=== PATIENT | male | born 1975 | race Caucasian/White ===

== ENCOUNTER → 2021-12-27 | Outpatient (CLI) | payer OTHER ==
[2021-12-27 14:56] LABS: BASO % 0.7 % (0.0-1.0); EOS # 0.3 10^3/uL (0.0-0.5); EOS % 5.4 % (0.0-3.0); HEMOGLOBIN 15.4 g/dl (13.5-17.5); LYMPH # 2.1 10^3/uL (1.5-5.0); LYMPH % 38.1 % (24.0-44.0); MEAN CORPUSCULAR HEMOGLOBIN 30.3 pg (27.0-33.0); MEAN CORPUSCULAR HGB CONC 33.5 g/dl (32.0-36.5); MEAN CORPUSCULAR VOLUME 90.6 fl (80.0-96.0); MONO # 0.5 10^3/uL (0.0-0.8); MONO % 9.7 % (2.0-8.0); NEUTROPHILS # 2.5 10^3/uL (1.5-8.5); NEUTROPHILS % 45.7 % (36.0-66.0); PLATELET COUNT, AUTOMATED 153 10^3/uL (150-450); RED BLOOD COUNT 5.08 10^6/uL (4.30-6.10); WHITE BLOOD COUNT 5.4 10^3/uL (4.0-10.0)
[2021-12-27 15:15] LABS: ERYTHROCYTE SEDIMENTATION RATE 1 mm/hr (0-15)
[2021-12-27 18:54] LABS: ALBUMIN 4.5 GM/DL (3.2-5.2); ALT/SGPT 33 U/L (12-78); BILIRUBIN,TOTAL 0.4 MG/DL (0.2-1.0); BLOOD UREA NITROGEN 16 MG/DL (7-18); CALCIUM LEVEL 9.6 MG/DL (8.5-10.1); CARBON DIOXIDE LEVEL 29 MEQ/L (21-32); CHLORIDE LEVEL 106 MEQ/L (98-107); CREATININE FOR GFR 1.06 MG/DL (0.70-1.30); FREE T4 0.86 NG/DL (0.76-1.46); GLOMERULAR FILTRATION RATE > 60.0 (>60); GLUCOSE, FASTING 85 MG/DL (70-100); POTASSIUM SERUM 4.6 MEQ/L (3.5-5.1); RHEUMATOID FACTOR QUANT < 10.0 IU/ML (<15.0); SODIUM LEVEL 141 MEQ/L (136-145); THYROID STIMULATING HORMONE 0.993 uIU/ML (0.358-3.740); TOTAL PROTEIN 7.5 GM/DL (6.4-8.2)
[2021-12-27 19:17] LABS: VITAMIN B12 LEVEL 432 PG/ML
[2021-12-27 19:18] LABS: FOLATE 7.8 NG/ML
[2022-01-03 14:08] LABS: ANTINUCLEAR ANTIBODIES DIRECT Negative (Negative); VITAMIN B1 LEVEL WHOLE BLOOD 121.6 nmol/L (66.5-200.0); VITAMIN B6,PYRIDOXAL PHOSPHATE 14.5 ug/L (3.4-65.2); VITAMIN E(ALPHA TOCOPHEROL) 10.6 mg/L (7.0-25.1); VITAMIN E(GAMMA TOCOPHEROL) 1.9 mg/L (0.5-5.5)
== END ==
LOC: M PLALAB 10:38
PROVIDERS: ATTEND Psychiatry & Neurology Neurology
DX: R41.3 Other amnesia (principal); E53.8 Deficiency of other specified B group vitamins

== ENCOUNTER → 2022-05-28 | Outpatient (REF) | LOC: M PLAIMG 11:26 | PROVIDERS: ATTEND Internal Medicine | DX: R52 Pain, unspecified (principal) ==